=== PATIENT | female | born 1960 | race Caucasian/White ===

== ENCOUNTER 2017-08-02 13:15 | Emergency (ER) | payer OTHER ==
[~2017-08-02] VITALS: Ht 170.2 cm; Wt 84.0 kg
[~2017-08-02 13:15] MED LIST: ADALAT CC 30 MG30 MG; Advil,Nuprin,Motrin PO; Aspirin E.C. PO; Cleocin PO; Habitrol,Nicoderm CQ TD; KEFLEX500 MG PO; PERCOCET 5/31 TABLET PO; PLAVIX75 MG PO; PYRIDIUM100 MG PO; PriLOSEC PO; Tylenol Regular Stre PO; XANAX0.5 MG PO; Zocor PO; oxyCODONE PO
[2017-08-02] MEDS ORDERED: TESSALON200 MG PO (13:47)
[2017-08-02] MEDS ORDERED: VIBRAMYCIN100 MG PO (13:47)
[2017-08-02 13:59] VITALS: BP 131/87
== END 2017-08-02 14:00 | disposition home or self-care (01) ==
LOC: EME 13:15
DX: J32.9 Chronic sinusitis, unspecified (principal); F17.200 Nicotine dependence, unspecified, uncomplicated; F32.9 Major depressive disorder, single episode, unspecified; Z86.73 Personal history of transient ischemic attack (TIA), and cerebral infarction without residual deficits; Z88.0 Allergy status to penicillin
CPT/HCPCS: 99281; 99283

== ENCOUNTER 2017-10-31 17:06 | Emergency (ER) | payer OTHER ==
[~2017-10-31] VITALS: Ht 170.2 cm; Wt 84.3 kg
[~2017-10-31 17:06] MED LIST changes: +TESSALON200 MG PO; +VIBRAMYCIN100 MG PO
[2017-10-31 18:38] LABS: BASOPHIL (%) 0.4 % (0-1); EOSINOPHIL (%) 0.2 % (0-5); HEMATOCRIT 41.3 % (36.0-46.0); HEMOGLOBIN 14.2 G/DL (11.9-15.5); IMMATURE GRANULOCYTE (%) 0.2 % (0.0-0.7); LYMPHOCYTE COUNT 2.2 K/uL (1.0-2.8); MCH 29.9 PG (29.0-34.0); MCHC 34.4 G/DL (30.0-36.0); MCV 86.9 FL (83-99); MONOCYTE COUNT 0.3 K/uL (0-0.8); NEUTROPHIL (%) 68.2 % (45-76); NEUTROPHIL COUNT 5.5 K/uL (1.8-6.4); PLATELET COUNT 236 K/uL (156-360); RBC DIS.WIDTH-CV 13.9 % (11.8-14.6); RBC DIS.WIDTH-SD 44.9 % (39-53); RED BLOOD COUNT 4.75 M/uL (3.80-5.20); WHITE BLOOD COUNT 8.1 K/uL (4.1-10.2)
[2017-10-31 18:52] LABS: CHLORIDE 110 mEq/L (99-109); POTASSIUM 3.2 mEq/L (3.7-5.4); SODIUM 143 mEq/L (136-147)
[2017-10-31 18:54] LABS: GLUCOSE 88 mg/dL (70-99)
[2017-10-31 18:58] LABS: CREATININE 0.8 mg/dL (0.6-1.3); GFR ESTIMATE (CALCULATED) > 59 mL/min/
[2017-10-31 18:59] LABS: UREA NITROGEN (BUN) 20 mg/dL (9-23)
[2017-10-31] MEDS ORDERED: FIORICET 50-301 EAC1 PO (21:40)
[2017-10-31] MEDS ORDERED: ZITHROMAX Z-PA250 MG PO (21:40)
[2017-10-31 21:54] VITALS: BP 154/80
== END 2017-10-31 21:55 | disposition home or self-care (01) ==
LOC: EME 17:06
PROVIDERS: Emergency Medicine
DX: R51 Headache (principal); R11.2 Nausea with vomiting, unspecified; Z86.73 Personal history of transient ischemic attack (TIA), and cerebral infarction without residual deficits; Z85.41 Personal history of malignant neoplasm of cervix uteri; Z79.02 Long term (current) use of antithrombotics/antiplatelets; Z72.0 Tobacco use
CPT/HCPCS: 70450; 80048; 85025; 99281; 99285; J1885; J2765; J7030